=== PATIENT | male | born 1970 | race Caucasian/White ===

== ENCOUNTER 2018-04-20 08:46 | Emergency (ER) | payer OTHER ==
[~2018-04-20] VITALS: Ht 177.8 cm; Wt 79.5 kg
[2018-04-20 09:00] VITALS: BP 132/74; PULSE 83; RESP 22; TEMP 97.6; O2SAT 96
--- NOTE | 2018-04-20 09:24 | PD ---
HPI Chief Complaint: Cold / Flu Symptoms Time Seen by Provider: 09:08 Travel History International Travel<30 days: No Contact w/Intl Traveler<30days: No Traveled to known affect area: No History of Present Illness HPI 47-year-old male presents emergency department with history of COPD treated with Advair 50/500, and albuterol, presents emergency department 1 week history of increasing shortness of breath, cough, wheezing, chest discomfort, and head congestion. He denies significant fever or chills. He states he is having increased difficulty with going up stairs or even getting dressed due to his shortness of breath. He denies nausea or vomiting or heartburn. He denies significant productive cough. Patient states a "ripping pain" with deep breath or cough in the anterior lower chest. He states he is having difficulty sleeping secondary to waking up short of breath. He states his nebulizer just makes him dizzy but does not seem to improve his symptoms. He states history of using steroids for his lungs approximate 3 months ago. His physician is in [place]. He has not seen a abalone fisherman prior to this. He is a non-smoker, but had exposure to secondhand smoke as a child. He has no known drug allergies. PFSH Past Medical History Respiratory: Yes Social History Alcohol Use: Yes Tobacco Use: No Substance Use: No Allergies-Medications (Allergen,Severity, Reaction): Coded Allergies: No Known Allergies (Unverified , 04/20/18) Reported Meds & Prescriptions Reported Meds & Active Scripts Active Albuterol Neb (Albuterol Sulfate) 2.5 Mg/0.5 Ml Neb 2.5 Mg NEB QID NEB Note: The Albuterol Sulfate Inhalation Solution is concentrated and must be diluted. Read complete instructions carefully before using. Ventolin Hfa 18 GM Inh (Albuterol Sulfate) 90 Mcg/Act Aer 2 Puff INH Q4-6H PRN Prednisone (48) 10 mg tab Dose Pack (Prednisone) 10 Mg Dspk 10 Mg PO DIRECTED Azithromycin 500 Mg Tab 500 Mg PO DAILY Review of Systems Except as stated in HPI: all other systems reviewed are Neg General / Constitutional: No: Fever, Chills Eyes: No: Visual changes HENT: Positive: Headaches, Rhinitis, Rhinorrhea, Congestion, No: Vertigo, Lightheadedness, Sore Throat, Nosebleed, Neck Stiffness, Neck Pain, Dental Difficulties, Earache Cardiovascular: Positive: Dyspnea on exertion, No: Chest Pain or Discomfort, Palpitations, Irregular Rhythm, Tachycardia Respiratory: Positive: Cough, Shortness of Breath, Wheezing, Pleuritic Pain ( See history of present illness), No: Sneezing Gastrointestinal: No: Nausea, Vomiting, Diarrhea, Abdominal Pain Genitourinary: No: Dysuria Musculoskeletal: No: Pain Skin: No Rash Neurologic: No: Weakness Psychiatric: No: Depression Endocrine: No: Polydipsia Hematologic/Lymphatic: No: Easy Bruising Physical Exam Narrative GENERAL: Patient appears in mild to moderate distress. SKIN: Warm and dry. Normal color. Mild diaphoresis. HEAD: Atraumatic. Normocephalic. No sinus tenderness to palpation or percussion. EYES: Pupils equal and round. No scleral icterus. No injection or drainage. ENT: No nasal bleeding or discharge. Mucous membranes pink and moist. TMs are clear bilaterally. Pharynx is unremarkable without significant postnasal drip noted. Airway is patent. NECK: Trachea midline. No JVD. Supple nontender. CARDIOVASCULAR: Regular rate and rhythm. No murmurs gallops or rubs per RESPIRATORY: No accessory muscle use. Moderate diffuse wheezes throughout, with rhonchi in the left lower lobe to auscultation. Breath sounds equal bilaterally. GASTROINTESTINAL: Abdomen soft, non-tender, nondistended. Hepatic and splenic margins not palpable. MUSCULOSKELETAL: Extremities without clubbing, cyanosis, or edema. No obvious deformities. NEUROLOGICAL: Awake and alert. No obvious cranial nerve deficits. Motor grossly within normal limits. Five out of 5 muscle strength in the arms and legs. Normal speech. PSYCHIATRIC: Appropriate mood and affect; insight and judgment normal. Data Data Last Documented VS Vital Signs Date Time Temp Pulse Resp B/P (MAP) Pulse Ox O2 Delivery O2 Flow Rate FiO2 04/20/18 09:21 96 Nasal Cannula 2.00 04/20/18 09:16 76 22 04/20/18 09:00 97.6 132/74 (93) Orders Orders Complete Blood Count With Diff (04/20/18 09:17) Comprehensive Metabolic Panel (04/20/18 09:17) Act Partial Throm Time (Ptt) (04/20/18 09:17) Prothrombin Time / Inr (Pt) (04/20/18 09:17) Ckmb (Isoenzyme) Profile (04/20/18 09:17) Troponin I (04/20/18 09:17) Urinalysis - C+S If Indicated (04/20/18 09:17) Iv Access Insert/Monitor (04/20/18 09:17) Electrocardiogram (04/20/18 09:17) Ecg Monitoring (04/20/18 09:17) Oximetry (04/20/18 09:17) Oxygen Administration (04/20/18 09:17) Chest, Pa & Lat (04/20/18 09:17) Sodium Chloride 0.9% Flush (Ns Flush) (04/20/18 09:30) Methylprednisolone So Succ Inj (Solumedr (04/20/18 09:30) Ceftriaxone Inj (Rocephin Inj) (04/20/18 09:30) Azithromycin (Zithromax) (04/20/18 09:30) CKMB (04/20/18 09:27) CKMB% (04/20/18 09:27) Labs Laboratory Tests Test 04/20/18 09:14 04/20/18 09:27 Urine Color YELLOW Urine Turbidity CLEAR Urine pH 5.0 Urine Specific [place] 1.021 Urine Protein NEG mg/dL Urine Glucose (UA) NEG mg/dL Urine Ketones NEG mg/dL Urine Occult Blood NEG Urine Nitrite NEG Urine Bilirubin NEG Urine Urobilinogen LESS THAN 2 mg/dL Urine Leukocyte Esterase NEG Urine RBC LESS THAN 1 /hpf Urine WBC LESS THAN 1 /hpf Microscopic Urinalysis Comment CULT NOT INDICATED White Blood Count 12.5 TH/MM3 Red Blood Count 5.53 MIL/MM3 Hemoglobin 16.1 GM/DL Hematocrit 46.4 % Mean Corpuscular Volume 84.0 FL Mean Corpuscular Hemoglobin 29.2 PG Mean Corpuscular Hemoglobin Concent 34.8 % Red Cell Distribution Width 13.8 % Platelet Count 333 TH/MM3 Mean Platelet Volume 7.8 FL Neutrophils (%) (Auto) 59.0 % Lymphocytes (%) (Auto) 22.9 % Monocytes (%) (Auto) 6.2 % Eosinophils (%) (Auto) 10.7 % Basophils (%) (Auto) 1.2 % Neutrophils # (Auto) 7.4 TH/MM3 Lymphocytes # (Auto) 2.9 TH/MM3 Monocytes # (Auto) 0.8 TH/MM3 Eosinophils # (Auto) 1.3 TH/MM3 Basophils # (Auto) 0.2 TH/MM3 CBC Comment DIFF FINAL Differential Comment Prothrombin Time 10.7 SEC Prothromb Time International Ratio 1.1 RATIO Activated Partial Thromboplast Time 25.1 SEC Blood Urea Nitrogen 17 MG/DL Creatinine 0.79 MG/DL Random Glucose 83 MG/DL Total Protein 7.3 GM/DL Albumin 3.9 GM/DL Calcium Level 8.9 MG/DL Alkaline Phosphatase 77 U/L Aspartate Amino Transf (AST/SGOT) 20 U/L Alanine Aminotransferase (ALT/SGPT) 28 U/L Total Bilirubin 0.9 MG/DL Sodium Level 141 MEQ/L Potassium Level 3.9 MEQ/L Chloride Level 108 MEQ/L Carbon Dioxide Level 25.2 MEQ/L Anion Gap 8 MEQ/L Estimat Glomerular Filtration Rate 105 ML/MIN Total Creatine Kinase 118 U/L Creatine Kinase MB 1.7 NG/ML Troponin I LESS THAN 0.02 NG/ML MDM Medical Decision Making Medical Screen Exam Complete: Yes Emergency Medical Condition: Yes Differential Diagnosis COPD with acute exacerbation. Upper respiratory infection. Sinusitis. Bronchitis. Pneumonia. Pulmonary fibrosis. Narrative Course Patient is medically stable at time of exam. EKG and chest x-ray PA and laterals ordered. Labs ordered including CBC, CMP, cardiac panel, and urinalysis. IV access is obtained the patient is given 125 mg Solu-Medrol IV, 500 mg azithromycin p.o., and 1000 mg ceftriaxone IV. Labs show slight leukocytosis of 12.5. There are no significant bands. Coagulation studies are normal. Chemistries are unremarkable. Troponin is less than 0.02 Urinalysis is unremarkable Chest x-ray shows: Lingular density likely infiltrate. Treatment and follow-up to resolution. Patient will be continued on azithromycin 5 mg daily for the next 5 days. Patient is continued on prednisone taper as directed. Patient given albuterol metered-dose inhaler 2 puffs every 4-6 hours as needed. Patient also given albuterol unit dose vials for nebulizer 1 every 6 hours as needed. #120 Patient should continue his Advair as previously prescribed. Recommend close follow-up with the abalone fisherman in 1-2 weeks to ensure resolution. Patient can return if symptoms worsen as needed. Diagnosis Primary Impression: Pneumonia Qualified Codes: J18.1 - Lobar pneumonia, unspecified organism Additional Impression: COPD with acute exacerbation Referrals: Hasmukh Noe MD call for appointment Patient Instructions: COPD (Chronic Obstructive Pulmonary Disease) (ED), Chronic Bronchitis (ED), General Instructions Departure Forms: Work Release Enter return to work date: Apr 22, 2018 Additional Instructions: Labs show slight leukocytosis of 12.5. There are no significant bands. Coagulation studies are normal. Chemistries are unremarkable. Troponin is less than 0.02 Urinalysis is unremarkable Chest x-ray shows: Lingular density likely infiltrate. Treatment and follow-up to resolution. Patient will be continued on azithromycin 5 mg daily for the next 5 days. Patient is continued on prednisone taper as directed. Patient given albuterol metered-dose inhaler 2 puffs every 4-6 hours as needed. Patient also given albuterol unit dose vials for nebulizer 1 every 6 hours as needed. #120 Patient should continue his Advair as previously prescribed. Recommend close follow-up with the abalone fisherman in 1-2 weeks to ensure resolution. Patient can return if symptoms worsen as needed. Scripts Albuterol Neb (Albuterol Neb) 2.5 Mg/0.5 Ml Neb 2.5 MG NEB QID NEB for Breathing Treatment, #120 NEBULE 0 Refills Note: The Albuterol Sulfate Inhalation Solution is concentrated and must be diluted. Read complete instructions carefully before using. Prov: Faib Das MD 04/20/18 Albuterol 18 GM Inh (Ventolin Hfa 18 GM Inh) 90 Mcg/Act Aer 2 PUFF INH Q4-6H Y for SHORTNESS OF BREATH, #1 INHALER 0 Refills Prov: Fabi Das MD 04/20/18 Prednisone (48) 10 mg tab Dose Pack (Prednisone (48) 10 mg tab Dose Pack) 10 Mg Dspk 10 MG PO DIRECTED for Inflammation, #1 DSPK 0 Refills Prov: Fabi Das MD 04/20/18 Azithromycin (Azithromycin) 500 Mg Tab 500 MG PO DAILY for Infection, #5 TAB 0 Refills Prov: Fabi Das MD 04/20/18 Disposition: 01 DISCHARGE HOME Condition: Stable Mario Herr Apr 20, 2018 09:24
[2018-04-20] MEDS ORDERED: methylPREDNISolone SOD SUCC 125 MG/2 ML VIAL IV PUSH ONE (09:30)
[2018-04-20] MEDS ORDERED: cefTRIAXone INJ 1,000 MG in SODIUM CHLORIDE 0.9% INJ 100 ML IV ONE (09:30)
[2018-04-20] MEDS ORDERED: SODIUM CHLORIDE 0.9% FLUSH 10 ML FLUSH IVF PRN (09:30)
[2018-04-20] MEDS ORDERED: AZITHROMYCIN 250 MG TAB PO ONE (09:30)
[2018-04-20 09:56] LABS: AUTOMATED NEUTROPHIL # 7.4 TH/MM3 (1.8-7.7); BASOPHIL # 0.2 TH/MM3 (0-0.2); BASOPHIL % 1.2 % (0.0-2.0); EOSINOPHIL # 1.3 TH/MM3 (0-0.4); EOSINOPHIL % 10.7 % (0.0-4.0); HEMATOCRIT 46.4 % (39.0-51.0); HEMOGLOBIN 16.1 GM/DL (13.0-17.0); LYMPH % 22.9 % (9.0-44.0); LYMPHOCYTE # 2.9 TH/MM3 (1.0-4.8); MEAN CORPUSCULAR HEMOGLOBIN 29.2 PG (27.0-34.0); MEAN CORPUSCULAR HGB CONC 34.8 % (32.0-36.0); MEAN PLATELET VOLUME 7.8 FL (7.0-11.0); MONO % 6.2 % (0.0-8.0); MONOCYTE # 0.8 TH/MM3 (0-0.9); PLATELET COUNT 333 TH/MM3 (150-450); RED BLOOD COUNT 5.53 MIL/MM3 (4.50-5.90); RED CELL DISTRIBUTION WIDTH 13.8 % (11.6-17.2); WHITE BLOOD COUNT 12.5 TH/MM3 (4.0-11.0)
--- NOTE | 2018-04-20 09:58 | RADRPT ---
EXAM DATE: 04/20/2018 9:51 AM EDT AGE/SEX: 47 years / Male INDICATIONS: Cough, shortness of breath and chest pain on left side. CLINICAL DATA: This is the patient's initial encounter. Patient reports that signs and symptoms have been present for 2 days and indicates a pain score of 6/10. MEDICAL/SURGICAL HISTORY: Asthma. None. COMPARISON: No prior exams available for comparison. FINDINGS: PA and lateral views of the chest demonstrate lingular density. Right lung clear. Heart normal in siz e. Slight hyperinflation. The cardiomediastinal contours are unremarkable. Osseous structures are int act. CONCLUSION: Lingular density likely infiltrate. Treatment and follow-up to resolution. Electronically signed by: Kory Arroyo MD 04/20/2018 9:57 AM EDT
[2018-04-20 10:06] LABS: BILIRUBIN, URINE NEG (NEG); BLOOD, URINE NEG (NEG); GLUCOSE,URINE NEG (NEG); KETONE, URINE NEG (NEG); NITRITE,URINE NEG (NEG); URINE COLOR YELLOW (YELLW/STRAW); URINE LEUKOCYTE ESTERASE NEG (NEG)
[2018-04-20 10:07] LABS: INTERNATIONAL NORMALIZED RATIO 1.1 RATIO; PROTHROMBIN TIME - PATIENT 10.7 SEC (9.8-11.6)
[2018-04-20 10:29] LABS: ALBUMIN 3.9 GM/DL (3.4-5.0); ALT (GPT) 28 U/L (12-78); AST (GOT) 20 U/L (15-37); BICARBONATE 25.2 MEQ/L (21.0-32.0); BLOOD UREA NITROGEN 17 MG/DL (7-18); CALCIUM 8.9 MG/DL (8.5-10.1); CHLORIDE 108 MEQ/L (98-107); CREATININE 0.79 MG/DL (0.60-1.30); GLOMERULAR FILTRATION RATE 105 ML/MIN (>89); GLUCOSE,RANDOM 83 MG/DL (74-106); SODIUM (NA) 141 MEQ/L (136-145)
[2018-04-20 10:33] LABS: ALKALINE PHOSPHATASE 77 U/L (45-117); TOTAL BILIRUBIN ADULT 0.9 MG/DL (0.2-1.0); TOTAL PROTEIN 7.3 GM/DL (6.4-8.2); TROPONIN I LESS THAN 0.02 NG/ML (0.02-0.05)
[2018-04-20] MEDS ORDERED: AZIT500T2 PO (10:50)
[2018-04-20] MEDS ORDERED: ALBU.5I NEB (10:50)
[2018-04-20] MEDS ORDERED: VENTAER INH (10:50)
[2018-04-20] MEDS ORDERED: PRED10PA2 PO (10:50)
--- NOTE | 2018-04-20 15:08 | EKG ---
Date Performed: 04/20/2018 Time Performed: 09:27:17 PTAGE: 47 years EKG: Sinus rhythm NORMAL ECG NO PREVIOUS TRACING DOCTOR: Ashkan gAuilar Interpretating Date/Time 04/20/2018 15:07:09
== END 2018-04-20 11:39 | disposition home or self-care (01) ==
LOC: NEPD 08:46
DX: J44.0 Chronic obstructive pulmonary disease with (acute) lower respiratory infection (principal); J18.1 Lobar pneumonia, unspecified organism; J44.1 Chronic obstructive pulmonary disease with (acute) exacerbation; R07.89 Other chest pain
CPT/HCPCS: 71046; 80053; 81001; 82550; 82552; 84484; 85025; 85610; 85730; 93005; 96374; 96375; 99285; J0696; J2930